=== PATIENT | male | born 1940 | race Caucasian/White ===

== ENCOUNTER → 2016-08-10 | Day surgery (SDC) | payer MEDICARE, BC ==
[~2016-08-10] MED LIST: Lactated Ringers 1,000 ML IV SCH; Lactated Ringers 1,000 ML ONE; Propofol 200 MG/20 ML SDV IV ONE
--- NOTE | 2016-08-10 07:58 | OR ---
DATE OF OPERATION: 08/10/2016 PREOPERATIVE DIAGNOSIS: FOLLOW UP POLYPS. POSTOPERATIVE DIAGNOSIS: FOLLOW UP POLYPS. SURGEON: Tyron Bishop MD PROCEDURE: FULL-LENGTH COLONOSCOPY. ANESTHESIA: BELT FIXER due to advanced age, hypertension. COMPLICATIONS: None. SPECIMEN: None. FINDINGS: 1. Full-length colonoscopy. 2. Moderate sigmoid diverticulosis. RECOMMENDATIONS: Follow up colonoscopy on an as-needed basis only given the patient's age. INDICATIONS: The patient was in for a physical. He was sent for colonoscopy due to apparent history of polyps. DESCRIPTION OF PROCEDURE: The patient was prepped and draped, placed in the left lateral decubitus position. A lubricated Olympus colonoscope was inserted and with relative ease was advanced to the cecum. The patient was fairly tortuous throughout the sigmoid, where we directly visualize the ileocecal valve and appendiceal orifice. The bowel prep was adequate. Upon withdrawal of the scope, throughout the entire length of the colon, I found no signs of any polyps, masses, ulcerations, or bleeding sites. No vascular abnormalities or signs of colitis. The patient does have scattered diverticula throughout the sigmoid and into the rectosigmoid junction, moderate in severity. No acute inflammatory changes seen. The rectal vault was unremarkable. Retroflexing the scope in the rectum was unable due to the shallowness of the vault itself. But upon direct exam, no obvious perianal lesions were seen. Air was suctioned and scope was removed without complication. ANN-MARIE/TAMI /[id number]
[2016-08-10 08:11] VITALS: BP 164/89
== END ==
LOC: CC.SDS 06:26
PROVIDERS: ATTEND Family Medicine
DX: Z12.11 Encounter for screening for malignant neoplasm of colon (principal); K57.30 Diverticulosis of large intestine without perforation or abscess without bleeding; I10 Essential (primary) hypertension
CPT/HCPCS: G0105; J2704; J7120; 00810

== ENCOUNTER 2017-09-22 18:30 | Emergency (ER) | payer MEDICARE, BC ==
[2017-09-22] MEDS ORDERED: Lidocaine 2% Jelly 5 ML Tube ONE ×2 (18:50→18:56)
[2017-09-22 18:51] VITALS: BP 117/62
[2017-09-22 19:06] LABS: CHLORIDE,CL 101 mEq/L (98-106); SODIUM,NA 135 mEq/L (136-145)
[2017-09-22] MEDS ORDERED: Morphine 2 MG/ML Syringe ONE (19:09)
--- NOTE | 2017-09-22 19:10 | EDM.PDOC ---
ED HPI GENERAL MEDICAL PROBLEM - General Chief Complaint: Genitourinary Problem Stated Complaint: hematuria Time Seen by Provider: 09/22/17 18:45 Source of Information: Reports: Patient History Limitations: Reports: No Limitations - History of Present Illness INITIAL COMMENTS - FREE TEXT/NARRATIVE: Gregory a 77 year old male with PMH of hypertension and BPH who presents to the ED with c/o gross hematuria, dizziness, CP, headache, and shortness of breath. He reports that on Saturday morning he urinated and had gross hematuria at the start of his stream. He reports that this has continued since then. He reports he was seen in the clinic by Dr. Gonzalez on Saturday and told he had a UTI. UA did show positive nitrites and leukocyte esterase, however it was packed with RBCs. He was started on Cipro and also received two doses of Rocephin per Dr. Gonzalez on both Saturday09/18/2017 and Saturday09/20/2017. He reports that he was given a standing order to have a Clay catheter placed. He reports that evening he was unable to urinate, so he presented for catheter placement. A 16 polish indwelling catheter was placed with large return of blood clots. He then reports that yesterday his catheter wasn't draining. He then presented to same day care and had his Clay irrigated with good results. He reports that all night and day his catheter was draining blood, up until now. The past few hours he has noticed no output from his catheter. He reports it had previously been draining dark red blood. He reports that today he began feeling very fatigued, lightheaded, short of breath, and is having some chest pain and headache. He reports he feels very weak. He denies any fever, chills, N /V/D, abdominal pain. Per chart review Hgb on 09/18/2017 was 9.7. K was 3.8. Na was 134. Onset Date: 09/17/17 Duration: Constant Associated Symptoms: Reports: Chest Pain, Headaches, Loss of Appetite, Shortness of Breath, Weakness. Denies: Confusion, Cough, cough w sputum, Diaphoresis, Fever/Chills, Malaise, Nausea/Vomiting, Rash, Seizure, Syncope - Related Data Allergies Allergy/AdvReac Type Severity Reaction Status Date / Time No Known Allergies Allergy Verified 09/21/17 15:19 Home Meds: Home Meds Irbesartan/Hydrochlorothiazide [Irbesartan-Hctz 150-12.5 mg Tb] 1 each PO DAILY 03/17/15 [History] Metoprolol Succinate [Toprol XL] 50 mg PO DAILY 03/17/15 [History] amLODIPine Besylate [Amlodipine Besylate] 5 mg PO DAILY 03/17/15 [History] Cholecalciferol (Vitamin D3) [Vitamin D3] 2,000 unit PO DAILY 08/09/16 [History] Finasteride 5 mg PO DAILY 08/09/16 [History] Folic Acid 0.8 mg PO DAILY 09/22/17 [History] Past Medical History Other Hematologic History: currently receiving blood transfusion ED ROS GENERAL - Review of Systems Review Of Systems: See Below Constitutional: Reports: Weakness, Fatigue, Decreased Appetite. Denies: Fever, Chills Respiratory: Reports: Shortness of Breath. Denies: Wheezing, Pleuritic Chest Pain, Cough, Hemoptysis Cardiovascular: Reports: Chest Pain, Dyspnea on Exertion, Lightheadedness. Denies: Edema, Orthopnea, Palpitations, Syncope Endocrine: Reports: Fatigue GI/Abdominal: Reports: Decreased Appetite. Denies: Abdominal Pain, Black Stool , Bloody Stool, Diarrhea, Hematemesis, Hematochezia, Nausea, Vomiting : Reports: Hematuria (gross), Urinary Retention (no drainage from clay), Other (Clay catheter in place) Musculoskeletal: Reports: No Symptoms Skin: Reports: Pallor Neurological: Reports: Dizziness, Headache, Weakness. Denies: Confusion, Numbness, Tingling Psychiatric: Reports: No Symptoms Hematologic/Lymphatic: Reports: No Symptoms Immunologic: Reports: No Symptoms ED EXAM, RENAL/ - Physical Exam Exam: See Below Exam Limited By: No Limitations General Appearance: Alert, WD/WN, Mild Distress Head: Atraumatic, Normocephalic Neck: Normal Inspection, Supple, Non-Tender, Full Range of Motion Respiratory/Chest: No Respiratory Distress, Lungs Clear, Normal Breath Sounds, No Accessory Muscle Use, Chest Non-Tender Cardiovascular: Normal Peripheral Pulses, Regular Rate, Rhythm, No Edema, Systolic Murmur GI/Abdominal: Normal Bowel Sounds, Soft, Non-Tender, No Organomegaly, No Distention, No Abnormal Bruit, No Mass. No: Distended (Male) Exam: No Hernia, Normal Inspection, Suprapubic Fullness. No: Circumcised, Scrotal Swelling, Scrotum Tenderness (L), Scrotum Tenderness (R) Back Exam: Normal Inspection, Full Range of Motion, NT Extremities: Normal Inspection, Normal Range of Motion, Non-Tender, Normal Capillary Refill, No Pedal Edema Neurological: Alert, Oriented, CN II-XII Intact, Normal Cognition, Normal Gait, Normal Reflexes, No Motor/Sensory Deficits Psychiatric: Normal Affect, Normal Mood Skin Exam: Warm, Dry, Intact, No Rash, Pallor Lymphatic: No Adenopathy Course - Vital Signs Last Recorded V/S: Last Vital Signs Temp 99.4 F 09/22/17 18:50 Pulse 84 09/22/17 18:50 Resp 20 09/22/17 18:50 BP 117/62 09/22/17 18:50 Pulse Ox 94 L 09/22/17 18:50 - Orders/Labs/Meds Orders: Active Orders 24 hr Category Date Time Status Morphine Med 09/22/17 19:11 Active 2 mg IVPUSH Q1H PRN Potassium Chloride [KCL 20 MEQ in Water 100 ML] 20 meq Med 09/22/17 19:37 Active Premix Bag 1 bag IV ONETIME EKG 12 Lead [EK] Routine Ther 09/22/17 18:43 Ordered Medication Orders Potassium Chloride 20 meq/ (Premix) 100 mls @ 50 mls/hr IV ONETIME ONE Stop: 09/22/17 21:36 Last Admin: 09/22/17 20:10 Dose: 50 mls/hr Morphine Sulfate (Morphine) 2 mg IVPUSH Q1H PRN PRN Reason: Pain Last Admin: 09/22/17 19:58 Dose: 2 mg Admin: 09/22/17 19:17 Dose: 2 mg Labs: Laboratory Tests 09/22/17 09/22/17 Range/Units 18:40 18:40 WBC 9.0 (5.0-10.0) 10^3/uL RBC 2.43 L (4.50-6.00) 10^6/uL Hgb 8.2 L (14.0-18.0) g/dL Hct 24.6 L (40.0-54.0) % MCV 101.2 H (82.0-94.0) fL MCH 33.7 H (27.0-32.0) pg MCHC 33.3 (33.0-38.0) g/dL RDW Coeff of Bandar 13.6 (11.0-15.0) % Plt Count 172 (150-400) 10^3/uL Neut % (Auto) 72.3 (35-85) % Lymph % (Auto) 16.2 (10-55) % [place] % (Auto) 10.3 (0-16) % Eos % (Auto) 0.9 (0-5) % Baso % (Auto) 0.3 (0-3) % Neut # (Auto) 6.52 (1.80-7.00) 10^3/uL Lymph # (Auto) 1.46 (1.00-4.80) 10^3/uL [place] # (Auto) 0.93 H (0.00-0.80) 10^3/uL Eos # (Auto) 0.08 (0.00-0.45) 10^3/uL Baso # (Auto) 0.03 10^3/uL Sodium 135 L (136-145) mEq/L Potassium 2.8 L* D (3.5-5.0) mEq/L Chloride 101 (98-106) mEq/L Carbon Dioxide 22 (21-32) mmol/L BUN 12 (7-18) mg/dL Creatinine 1.1 (0.7-1.3) mg/dL Est Cr Clr Drug Dosing 61.80 mL/min Estimated GFR (MDRD) > 60 (>=60) mL/min Glucose 121 H (75-99) mg/dL Calcium 8.3 L (8.4-10.1) mg/dL Total Bilirubin 0.5 (0.0-1.0) mg/dL AST 41 H (15-37) U/L ALT 50 (12-78) U/L Alkaline Phosphatase 57 (46-116) U/L Lactate Dehydrogenase 219 H (100-190) U/L Troponin I 0.078 H (0.00-0.06) ng/mL C-Reactive Protein 2.5 H (0.2-0.8) mg/dL Total Protein 5.7 L (6.4-8.2) g/dL Albumin 2.8 L (3.4-5.0) g/dL Meds: Medications Generic Name Dose Route Start Last Admin Trade Name Jade PRN Reason Stop Dose Admin Potassium Chloride 20 meq/ 100 mls @ 50 mls/hr 09/22/17 19:37 09/22/17 20:10 Premix IV 09/22/17 21:36 50 mls/hr ONETIME ONE Administration Morphine Sulfate 2 mg 09/22/17 19:11 09/22/17 19:58 Morphine IVPUSH 2 mg Q1H PRN Administration Pain Discontinued Medications Generic Name Dose Route Start Last Admin Trade Name Frealice PRN Reason Stop Dose Admin Sodium Chloride Confirm 09/22/17 19:16 09/22/17 19:29 Normal Saline Administered 09/22/17 19:17 Not Given Dose 1,000 mls @ as directed .ROUTE .STK-MED ONE Sodium Chloride 1,000 mls @ 999 mls/hr 09/22/17 19:28 09/22/17 19:29 Normal Saline IV 09/22/17 20:28 999 mls/hr .BOLUS ONE Administration Lidocaine HCl Confirm 09/22/17 18:50 Xylocaine 2% Jelly Administered 09/22/17 18:51 Dose 5 ml .ROUTE .STK-MED ONE Lidocaine HCl Confirm 09/22/17 18:56 Xylocaine 2% Jelly Administered 09/22/17 18:57 Dose 5 ml .ROUTE .STK-MED ONE Morphine Sulfate Confirm 09/22/17 19:09 09/22/17 19:27 Morphine Administered 09/22/17 19:10 Not Given Dose 2 mg .ROUTE .STK-MED ONE - Re-Assessments/Exams Free Text/Narrative Re-Assessment/Exam: Per standing orders, prior to my arrival nursing staff attempted to irrigate his previously placed 16 polish catheter without results. They then removed catheter and attempted to place a 24 F catheter per verbal order. They were unable to get catheter placed. I then attempted to place a 3 way catheter. We did get good bloody urine return of 600 mL. 20 meQ IV KCL initiated. Will hold off on imaging at this time as we will be transferring to higher level of care for further workup and treatment of gross hematuria. Patient hgb 8.2. K 2.8. He also has new grade III systolic heart murmur. Troponin indeterminant at 0.07. EKG shows junctional rhythm. Called [facility] and discussed case with Dr. Morton. Patient will be transferred via [facility] to [facility] ED for further workup of gross hematuria and urologic consultation as patient has doctored with Dr. Moseley in the past. Departure - Departure Time of Disposition: 20:45 Disposition: DC/Tfer to Acute Hospital 02 Condition: Fair Clinical Impression: Gross hematuria, Hypokalemia, Heart murmur, systolic Anemia Qualifiers: Anemia type: unspecified type Qualified Code(s): D64.9 - Anemia, unspecified - Discharge Information Forms: ED Department Discharge - Problem List & Annotations (1) Gross hematuria SNOMED Code(s): 385224176 Code(s): R31.0 - GROSS HEMATURIA Status: Acute Current Visit: Yes (2) Anemia SNOMED Code(s): 269190579 Code(s): D64.9 - ANEMIA, UNSPECIFIED Status: Acute Current Visit: Yes Qualifiers: Anemia type: unspecified type Qualified Code(s): D64.9 - Anemia, unspecified (3) Heart murmur, systolic SNOMED Code(s): 91499840 Code(s): R01.1 - CARDIAC MURMUR, UNSPECIFIED Status: Acute Current Visit : Yes (4) Hypokalemia SNOMED Code(s): 81162053 Code(s): E87.6 - HYPOKALEMIA Status: Acute Current Visit: Yes - Problem List Review Problem List Initiated/Reviewed/Updated: Yes - My Orders Last 24 Hours: My Active Orders 09/22/17 18:43 EKG 12 Lead [EK] Routine 09/22/17 19:11 Morphine 2 mg IVPUSH Q1H PRN 09/22/17 19:37 Potassium Chloride [KCL 20 MEQ in Water 100 ML] 20 meq Premix Bag 1 bag IV ONETIME - Assessment/Plan Last 24 Hours: My Active Orders 09/22/17 18:43 EKG 12 Lead [EK] Routine 09/22/17 19:11 Morphine 2 mg IVPUSH Q1H PRN 09/22/17 19:37 Potassium Chloride [KCL 20 MEQ in Water 100 ML] 20 meq Premix Bag 1 bag IV ONETIME Plan: Transfer to [facility] with Dr. Morton accepting ED physician.
[2017-09-22] MEDS ORDERED: Sodium Chloride 0.9% 1,000 ML ONE (19:16)
[2017-09-22] MEDS: Morphine 2 MG/ML Syringe IVPUSH PRN ×2 (19:17→19:58)
[2017-09-22] MEDS ORDERED: Sodium Chloride 0.9% 1,000 ML IV ONE (19:28)
[2017-09-22] MEDS ORDERED: Potassium Chloride 20 MEQ in Premix Bag 1 BAG IV ONE (19:37)
[2017-09-23] MEDS ORDERED: Lidocaine 2% Jelly 5 ML Tube TOP ONE (02:18)
== END 2017-09-22 21:00 ==
LOC: CC.ED 18:30
DX: E87.6 Hypokalemia (principal); R01.1 Cardiac murmur, unspecified; D64.9 Anemia, unspecified; R31.0 Gross hematuria; Z79.899 Other long term (current) drug therapy
CPT/HCPCS: 36415; 80053; 83615; 84484; 85025; 86140; 96365; 96366; 96375; 96376; 99284; 99285; J2270; J3480; J7030; 96361; 96374